=== PATIENT | male | born 2000 ===

== ENCOUNTER 2021-05-31 19:45 | Inpatient (IN) | payer OTHER ==
[~2021-05-31 19:45] MED LIST: Iopamidol-370 76% 500 ML 1 ML ONE
[2021-05-31] MEDS ORDERED: Boostrix 0.5 ML (Tdap) VIAL ONE (19:52)
[2021-05-31] MEDS ORDERED: Morphine 4 MG/ML VIAL ONE ×2 (19:52→21:45)
[2021-05-31] MEDS ORDERED: CEFAZOLIN 1 GM VIAL ONE (19:52)
[2021-05-31 20:07] LABS: #Basophils 0.1 thou/uL (0.0-0.2); #Eosinphils 0.1 thou/uL (0.0-0.7); #Monocytes 1.8 thou/uL (0.11-0.59); #Neutrophils 15.8 thou/uL (1.40-6.50); %Basophils 0.4 % (0.0-1.0); %Eosinophils 0.5 % (0.0-10.0); %Lymphocytes 10.2 % (21.0-51.0); %Neutrophils 79.8 % (42.0-75.0); Mean Corpuscular HGB CONC 34.2 g/dL (32.0-36.0); Mean Corpuscular Hemoglobin 32.2 pg (27.0-31.0); Mean Corpuscular Volume 94.1 fL (78.0-98.0); Mean Platelet Volume 5.7 fL (7.4-10.4); Platelet Count 321 thou/uL (130-400); RBC Distribution Width 12.2 % (11.5-14.5); Red Blood Cell (RBC) Count 4.35 mill/uL (4.70-6.10); White Blood Cell (WBC) Count 19.8 thou/uL (4.8-10.8)
[2021-05-31 20:30] LABS: ALT (SGPT) 68 U/L (8-55); AST (SGOT) 91 U/L (5-34); Albumin 3.8 g/dL (3.5-5.0); Alkaline Phosphatase 58 U/L (40-110); Anion Gap 15 mmol/L (10-20); BUN (Urea Nitrogen) 14 mg/dL (8.9-20.6); Bilirubin, Total 0.8 mg/dL (0.2-1.2); Calc. Creatinine Clearance 0 mL/min (70-130); Calcium 8.8 mg/dL (7.8-10.44); Carbon Dioxide 20 mmol/L (22-29); Chloride 108 mmol/L (98-107); Globulin 3.2 g/dL (2.4-3.5); Glucose 152 mg/dL (70-105); Potassium 4.3 mmol/L (3.5-5.1); Sodium 139 mmol/L (136-145)
[2021-05-31 21:00] LABS: SARS-CoV-2 NAA Rapid Test Not Detected (NotDetected)
[2021-05-31 21:32] LABS: Bacteria/HPF None Seen HPF (None Seen); Bilirubin Negative (Negative); Blood, Urine 3+ (Negative); Clarity Clear (Clear); Glucose, Urine (Dipstick) 30 mg/dL (Negative); Ketone, Urine Negative (Negative); Leukocyte Negative Leu/uL (Negative); Mucous/LPF Rare LPF (<2+); Nitrite Negative (Negative); Protein, Urine (Dipstick) 20 mg/dL (Neg-Trace); RBC/HPF Greater than 50 HPF (0-3); Specific Gravity, Urine 1.026 (1.002-1.036); Squamous Epithelial None Seen HPF (0-3); Urobilinogen Normal mg/dL (Less than 2); WBC/HPF 0-3 HPF (0-3); pH, Urine 7.5 (5.0-9.0)
[2021-05-31 21:37] LABS: Amphetamine Detected (NotDetected); Barbiturates Screen Not Detected (NotDetected); Benzodiazepine Screen Not Detected (NotDetected); Cocaine Metabolite Screen Detected (NotDetected); Methadone Not Detected (NotDetected); Methamphetamine Detected (NotDetected); Opiate Screen Detected (NotDetected); Oxycodone Screen Not Detected (NotDetected); Phencyclidine (PCP) Not Detected (NotDetected); THC/Cannabinoid Screen Detected (NotDetected); Tricyclic Screen Not Detected (NotDetected)
[2021-05-31] MEDS ORDERED: Ondansetron PF 4 MG/2 ML Vial ONE (21:45)
[2021-05-31] MEDS ORDERED: Diazepam 10 MG/2 ML SYRINGE ONE (21:55)
[2021-05-31] MEDS ORDERED: hydrALAZINE 20 MG/ML VIAL SLOW IVP PRN (22:06)
[2021-05-31] MEDS ORDERED: Dextrose 50% Abboject 50 ML SYRINGE SLOW IVP PRN (22:06)
[2021-05-31] MEDS ORDERED: Dextrose 5% in Water 1,000 ML IV PRN (22:06)
[2021-05-31] MEDS ORDERED: Promethazine HCl 25 MG/ML VIAL IM PRN ×2 (22:06)
[2021-05-31] MEDS ORDERED: Ondansetron PF 4 MG/2 ML Vial IVP PRN (22:06)
[2021-05-31] MEDS ORDERED: Ondansetron ODT 4 MG TAB PO PRN (22:06)
[2021-05-31] MEDS ORDERED: Lidocaine 1% (PF) 30 ML VIAL ONE (22:20)
[2021-05-31] MEDS ORDERED: Morphine 4 MG/ML VIAL SLOW IVP PRN (22:22)
[2021-05-31 22:46] LABS: Hemoglobin 12.4 g/dL (14.0-18.0)
[2021-05-31 23:38] VITALS: BMI 22.2
[2021-05-31] MEDS: Morphine 4 MG/ML VIAL SLOW IVP PRN (23:52)
[2021-05-31] MEDS: Sodium Chloride 0.9% 1,000 ML IV SCH (23:54)
[2021-06-01 04:50] LABS: #Lymphocytes 1.1 thou/uL (1.20-3.40); #Monocytes 1.1 thou/uL (0.11-0.59); %Basophils 0.2 % (0.0-1.0); %Eosinophils 0.2 % (0.0-10.0); %Lymphocytes 10.9 % (21.0-51.0); %Monocytes 10.4 % (0.0-10.0); %Neutrophils 78.3 % (42.0-75.0); Hemoglobin 12.2 g/dL (14.0-18.0); Mean Corpuscular HGB CONC 34.4 g/dL (32.0-36.0); Mean Corpuscular Hemoglobin 31.9 pg (27.0-31.0); Mean Corpuscular Volume 92.8 fL (78.0-98.0); Mean Platelet Volume 5.5 fL (7.4-10.4); Platelet Count 232 thou/uL (130-400); RBC Distribution Width 12.1 % (11.5-14.5); Red Blood Cell (RBC) Count 3.83 mill/uL (4.70-6.10); White Blood Cell (WBC) Count 10.2 thou/uL (4.8-10.8)
[2021-06-01 05:09] LABS: Phosphorus 3.6 mg/dL (2.3-4.7)
[2021-06-01 05:12] LABS: Anion Gap 11 mmol/L (10-20); BUN (Urea Nitrogen) 12 mg/dL (8.9-20.6); Calc. Creatinine Clearance 131 mL/min (70-130); Calcium 8.2 mg/dL (7.8-10.44); Carbon Dioxide 25 mmol/L (22-29); Chloride 109 mmol/L (98-107); Glucose 122 mg/dL (70-105); Magnesium 1.7 mg/dL (1.6-2.6); Sodium 141 mmol/L (136-145)
[2021-06-01] MEDS: Morphine 4 MG/ML VIAL SLOW IVP PRN (05:49)
[2021-06-01] MEDS: Sodium Chloride 0.9% 1,000 ML IV SCH ×3 (05:50→22:37)
[2021-06-01] MEDS ORDERED: Midazolam HCl 2 mg/2 ml Vial ONE (07:18)
[2021-06-01] MEDS ORDERED: Fentanyl 250 MCG/5 ML VIAL ONE (07:18)
[2021-06-01] MEDS ORDERED: ceFAZolin Sodium (SDC) 2 GM/100 ML BAG ONE (07:48)
[2021-06-01] MEDS ORDERED: Ondansetron PF 4 MG/2 ML Vial ONE (08:29)
[2021-06-01] MEDS ORDERED: Lidocaine 1% PF 5 ML VIAL ONE (08:29)
[2021-06-01] MEDS ORDERED: PROPOFOL 200 MG/20 ML VIAL ONE (08:29)
[2021-06-01] MEDS ORDERED: Rocuronium Bromide 10 MG/ML (10ML VIAL) ONE (08:29)
[2021-06-01] MEDS ORDERED: Glycopyrrolate 0.2 MG/ML 5 ML SYRINGE ONE (08:29)
[2021-06-01] MEDS ORDERED: Dexamethasone 20 MG/5 ML VIAL ONE (08:29)
[2021-06-01] MEDS ORDERED: Meperidine HCl/PF 25 MG/ML VIAL ONE (10:17)
[2021-06-01] MEDS ORDERED: HYDROcodone/Acetaminophen 10/325 mg Tablet PO PRN ×2 (10:20)
[2021-06-01] MEDS ORDERED: Communication Order-Pharmacy FS SCH (10:30)
[2021-06-01] MEDS ORDERED: Meperidine HCl/PF 25 MG/ML VIAL IV PRN (11:00)
[2021-06-01] MEDS ORDERED: Promethazine HCl 25 MG/ML VIAL IM/IV PRN (11:00)
[2021-06-01] MEDS ORDERED: Ondansetron HCl/PF 4 MG/2 ML Vial IVP PRN (11:00)
[2021-06-01] MEDS ORDERED: Non-Formulary Medication 1 EACH PO PRN (11:00)
[2021-06-01] MEDS ORDERED: Fentanyl 100 MCG/2 ML VIAL ONE (11:01)
[2021-06-01] MEDS ORDERED: traMADol HCl 50 MG TAB PO PRN (12:22)
[2021-06-01] MEDS ORDERED: Acetaminophen 325 MG TAB PO SCH (12:30)
[2021-06-01] MEDS ORDERED: Ibuprofen 600 MG TAB PO SCH (12:30)
[2021-06-01] MEDS ORDERED: TETANUS AND DIPHTHERIA TOX/PF 0.5 ML DISP.SYRIN IM SCH (14:00)
[2021-06-01] MEDS: Gabapentin 100 MG CAP PO SCH ×2 (14:57→20:10)
[2021-06-01] MEDS: Ibuprofen 200 MG TAB PO SCH ×2 (14:58→22:44)
[2021-06-01] MEDS: Acetaminophen 500 MG TAB PO SCH ×2 (14:58→20:11)
[2021-06-01] MEDS: CEFAZOLIN 2 GM in Sodium Chloride 0.9% 100 ML IVPB SCH ×2 (14:59→22:35)
[2021-06-01] MEDS ORDERED: Gabapentin 300 MG CAP PO SCH (15:00)
[2021-06-01] MEDS: Famotidine 20 MG TAB PO SCH ×2 (16:47→20:10)
[2021-06-01] MEDS: traMADol HCl 50 MG TAB PO SCH ×2 (18:44→23:54)
[2021-06-01] MEDS: Aspirin 81 mg Enteric Coated Tablet PO SCH (20:10)
[2021-06-02] MEDS: Acetaminophen 500 MG TAB PO SCH ×4 (02:08→20:51)
[2021-06-02] MEDS: Ibuprofen 200 MG TAB PO SCH ×2 (05:46→16:05)
[2021-06-02] MEDS: traMADol HCl 50 MG TAB PO SCH ×4 (05:46→23:34)
[2021-06-02] MEDS: CEFAZOLIN 2 GM in Sodium Chloride 0.9% 100 ML IVPB SCH (05:48)
[2021-06-02 06:46] LABS: #Eosinphils 0.1 thou/uL (0.0-0.7); #Monocytes 0.7 thou/uL (0.11-0.59); #Neutrophils 5.8 thou/uL (1.40-6.50); %Basophils 0.1 % (0.0-1.0); %Eosinophils 1.1 % (0.0-10.0); %Lymphocytes 23.3 % (21.0-51.0); %Monocytes 7.7 % (0.0-10.0); %Neutrophils 67.8 % (42.0-75.0); Hemoglobin 8.8 g/dL (14.0-18.0); Mean Corpuscular HGB CONC 34.6 g/dL (32.0-36.0); Mean Corpuscular Hemoglobin 32.4 pg (27.0-31.0); Mean Corpuscular Volume 93.7 fL (78.0-98.0); Mean Platelet Volume 5.7 fL (7.4-10.4); Platelet Count 146 thou/uL (130-400); Red Blood Cell (RBC) Count 2.72 mill/uL (4.70-6.10); White Blood Cell (WBC) Count 8.6 thou/uL (4.8-10.8)
[2021-06-02 07:09] LABS: Anion Gap 7 mmol/L (10-20); BUN (Urea Nitrogen) 10 mg/dL (8.9-20.6); Calc. Creatinine Clearance 151 mL/min (70-130); Calcium 7.8 mg/dL (7.8-10.44); Carbon Dioxide 28 mmol/L (22-29); Chloride 107 mmol/L (98-107); Glucose 113 mg/dL (70-105); Magnesium 1.9 mg/dL (1.6-2.6); Phosphorus 2.3 mg/dL (2.3-4.7); Potassium 3.7 mmol/L (3.5-5.1); Sodium 138 mmol/L (136-145)
[2021-06-02] MEDS ORDERED: Potassium Phosphate 30 MMOL, Magnesium Sulfate 4 GM in Sodium Chloride 0.9% 250 ML IVPB SCH (07:45)
[2021-06-02] MEDS: Aspirin 81 mg Enteric Coated Tablet PO SCH (08:38)
[2021-06-02] MEDS: Gabapentin 100 MG CAP PO SCH (08:38)
[2021-06-02] MEDS: Famotidine 20 MG TAB PO SCH (09:00)
[2021-06-02] MEDS: Cyclobenzaprine 10 MG TAB PO PRN (11:58)
[2021-06-03] MEDS: Acetaminophen 500 MG TAB PO SCH ×4 (04:08→20:36)
[2021-06-03] MEDS: traMADol HCl 50 MG TAB PO SCH ×3 (05:15→20:22)
[2021-06-03 06:08] LABS: #Eosinphils 0.2 thou/uL (0.0-0.7); #Lymphocytes 2.4 thou/uL (1.20-3.40); #Monocytes 0.5 thou/uL (0.11-0.59); #Neutrophils 2.9 thou/uL (1.40-6.50); %Basophils 0.8 % (0.0-1.0); %Lymphocytes 39.8 % (21.0-51.0); %Monocytes 8.2 % (0.0-10.0); %Neutrophils 47.2 % (42.0-75.0); Hemoglobin 8.5 g/dL (14.0-18.0); Mean Corpuscular HGB CONC 33.1 g/dL (32.0-36.0); Mean Corpuscular Hemoglobin 32.3 pg (27.0-31.0); Mean Corpuscular Volume 97.5 fL (78.0-98.0); Mean Platelet Volume 6.3 fL (7.4-10.4); Platelet Count 141 thou/uL (130-400); RBC Distribution Width 12.3 % (11.5-14.5); Red Blood Cell (RBC) Count 2.64 mill/uL (4.70-6.10); White Blood Cell (WBC) Count 6.1 thou/uL (4.8-10.8)
[2021-06-03 06:32] LABS: Anion Gap 8 mmol/L (10-20); BUN (Urea Nitrogen) 12 mg/dL (8.9-20.6); Calc. Creatinine Clearance 155 mL/min (70-130); Calcium 7.9 mg/dL (7.8-10.44); Carbon Dioxide 26 mmol/L (22-29); Chloride 111 mmol/L (98-107); Glucose 124 mg/dL (70-105); Potassium 3.9 mmol/L (3.5-5.1); Sodium 141 mmol/L (136-145)
[2021-06-03] MEDS ORDERED: FLU VACC QS2021-22(6MOS UP)/PF 60 MCG/0.5 ML SYRINGE IM ONE (09:00)
[2021-06-03] MEDS: Polyethylene Glycol 3350 17 GM Packet PO SCH (09:27)
[2021-06-03] MEDS: Senokot S 8.6-50 MG TAB PO SCH ×2 (09:27→20:37)
[2021-06-04] MEDS: traMADol HCl 50 MG TAB PO SCH ×4 (00:08→17:54)
[2021-06-04] MEDS: Acetaminophen 500 MG TAB PO SCH ×3 (03:18→17:55)
[2021-06-04 06:11] LABS: #Eosinphils 0.3 thou/uL (0.0-0.7); #Lymphocytes 2.2 thou/uL (1.20-3.40); #Monocytes 0.6 thou/uL (0.11-0.59); #Neutrophils 3.5 thou/uL (1.40-6.50); %Basophils 0.3 % (0.0-1.0); %Eosinophils 4.4 % (0.0-10.0); %Lymphocytes 33.3 % (21.0-51.0); %Monocytes 9.4 % (0.0-10.0); %Neutrophils 52.7 % (42.0-75.0); Hemoglobin 8.8 g/dL (14.0-18.0); Mean Corpuscular HGB CONC 34.4 g/dL (32.0-36.0); Mean Corpuscular Hemoglobin 32.1 pg (27.0-31.0); Mean Corpuscular Volume 93.4 fL (78.0-98.0); Mean Platelet Volume 6.3 fL (7.4-10.4); Platelet Count 188 thou/uL (130-400); RBC Distribution Width 11.8 % (11.5-14.5); Red Blood Cell (RBC) Count 2.74 mill/uL (4.70-6.10); White Blood Cell (WBC) Count 6.6 thou/uL (4.8-10.8)
[2021-06-04] MEDS: Senokot S 8.6-50 MG TAB PO SCH (08:42)
[2021-06-04] MEDS: Cyclobenzaprine 10 MG TAB PO PRN (08:47)
[2021-06-04] MEDS ORDERED: Ferrous Sulfate 325 MG TAB PO SCH (09:00)
[2021-06-04] MEDS ORDERED: Ascorbic Acid 500 mg Chewable Tablet PO SCH (09:00)
[2021-06-04] MEDS: Polyethylene Glycol 3350 17 GM Packet PO SCH (09:04)
[2021-06-04 16:32] VITALS: BP 134/77; TEMP 98.9
== END 2021-06-04 19:48 | disposition home or self-care (01) | DRG 956 ==
LOC: ERS 19:45 → SJJU 22:01
PROVIDERS: ADMIT Surgery; ATTEND Surgery
PROC: 0QS906Z Reposition Left Femoral Shaft with Intramedullary Internal Fixation Device, Open Approach (ICD-10-PCS; principal; 2021-06-01)
PROC: 0JQ10ZZ Repair Face Subcutaneous Tissue and Fascia, Open Approach (ICD-10-PCS; 2021-06-01)
DX: S72.352A Displaced comminuted fracture of shaft of left femur, initial encounter for closed fracture (principal); Z20.822 Contact with and (suspected) exposure to COVID-19; Z23 Encounter for immunization; S36.031A Moderate laceration of spleen, initial encounter; S37.062A Major laceration of left kidney, initial encounter; S06.0X9A Concussion with loss of consciousness of unspecified duration, initial encounter; S22.32XA Fracture of one rib, left side, initial encounter for closed fracture; S27.321A Contusion of lung, unilateral, initial encounter; S01.112A Laceration without foreign body of left eyelid and periocular area, initial encounter; F12.10 Cannabis abuse, uncomplicated; F17.210 Nicotine dependence, cigarettes, uncomplicated; V03.99XA Pedestrian with other conveyance injured in collision with car, pick-up truck or van, unspecified whether traffic or nontraffic accident, initial encounter; Y92.410 Unspecified street and highway as the place of occurrence of the external cause; S92.315A Nondisplaced fracture of first metatarsal bone, left foot, initial encounter for closed fracture; S92.325A Nondisplaced fracture of second metatarsal bone, left foot, initial encounter for closed fracture; S92.335A Nondisplaced fracture of third metatarsal bone, left foot, initial encounter for closed fracture; F15.10 Other stimulant abuse, uncomplicated; F14.10 Cocaine abuse, uncomplicated; S53.105A Unspecified dislocation of left ulnohumeral joint, initial encounter; S53.102A Unspecified subluxation of left ulnohumeral joint, initial encounter
CPT/HCPCS: 12011; 36415; 70450; 71260; 72125; 72170; 74177; 76000; 80048; 80053; 80306; 81003; 81015; 83735; 84100; 85025; 90471; 90686; 90715; 90732; 96374; 96375; 96376; C1713; G0008; G0009; G0390; J0690; J1100; J2001; J2175; J2250; J2270; J2405; J2704; J3010; J3360; J3475; J3490; J7030; J7050; Q9967; U0002